=== PATIENT | female | born 1945 | race Caucasian/White ===

== ENCOUNTER 2016-08-18 13:41 | Day surgery (SDC) | payer MEDICARE, OTHER ==
--- NOTE | ~2016-08-18 | EGD ---
EGD REPORT [facility] [address] [address] NAME: LEN ORTIZ : [birth year] [place]US : [place] [facility] [place]#: [id number] AGE: 70 ADM/REG DATE : 08/18/16 MR#: [id number] REPORT SERV DATE: 08/18/16 DICTATED BY: SARA MASON DATE: 08/18/16 REPORT STATUS : Draft [facility] DATE: 08/18/16 [facility] Center Patient Name: Len Ortiz Date of : 1945 Attending MD: RAMON MASON MD Procedure Date No Time: 08/18/2016 Procedure: Upper GI endoscopy Indications: Dysphagia, Gastro-esophageal reflux disease Referring MD: JANNY WALLACE JR., JULIETTE MASON Medicines: See the Anesthesia note for documentation of the administered medications Complications: No immediate complications. Estimated blood loss: Minimal. Procedure: Pre-Anesthesia Assessment: - ASA Grade Assessment: II - A patient with mild systemic disease. - Prior to the procedure, a History and Physical was performed, and patient medications and allergies were reviewed. The patient's tolerance of previous anesthesia was also reviewed. The risks and benefits of the procedure and the sedation options and risks were discussed with the patient. All questions were answered, and informed consent was obtained. Prior Anticoagulants: The patient has taken no previous anticoagulant or antiplatelet agents. After reviewing the risks and benefits, the patient was deemed in satisfactory condition to undergo the procedure. After obtaining informed consent, the endoscope was passed under direct vision. Throughout the procedure, the patient's blood pressure, pulse, and oxygen saturations were monitored continuously. The GIF H190 [id number] was introduced through the mouth, and advanced to the second part of duodenum. The upper GI endoscopy was accomplished without difficulty. The patient tolerated the procedure well. Findings: The examined duodenum was normal. Diffuse mild inflammation characterized by erythema was found in the stomach. Biopsies were taken with a cold forceps for histology. The cardia and gastric fundus were normal on retroflexion. Diffuse mild erythema was found in the lower third of the esophagus. Biopsies were taken with a cold forceps for histology. The examined esophagus was normal. A guidewire was placed and the scope was withdrawn. Dilation was performed with a Savary dilator with no EGD REPORT [address] [place]. [address] NAME: LEN ORTIZ : [birth year] STATUS : REG [facility]#: [id number] AGE: 70 ADM/REG DATE : 08/18/16 MR#: [id number] REPORT SERV DATE: 08/18/16 DICTATED BY: SARA MASON DATE: 08/18/16 REPORT STATUS : Draft [facility]ANS[facility]ED [facility]: [facility] DATE: 08/18/16 resistance at 51 Fr. Impression: - Normal examined duodenum. - Gastritis. Biopsied. - Erythema in the lower third of the esophagus. Biopsied. - Normal esophagus. Dilated. Recommendation: - Patient has a contact number available for emergencies. The signs and symptoms of potential delayed complications were discussed with the patient. Return to normal activities tomorrow. Written discharge instructions were provided to the patient. - Regular diet. - Discharge patient to home. - Continue present medications. - Await pathology results. Procedure Code(s): --- Professional --- 68033, Esophagogastroduodenoscopy, flexible, transoral; with insertion of guide wire followed by passage of dilator(s) through esophagus over guide wire 09961, Esophagogastroduodenoscopy, flexible, transoral; with biopsy, single or multiple Diagnosis Code(s): --- Professional --- K29.70, Gastritis, unspecified, without bleeding K22.9, Disease of esophagus, unspecified R13.10, Dysphagia, unspecified K21.9, Gastro-esophageal reflux disease without esophagitis CPT copyright 2013 [employer]. All rights reserved. The codes documented in this report are preliminary and upon emergency medical services coordinator review may be revised to meet current compliance requirements. RAMON MASON MD 08/18/2016 4:10 PM This report has been signed electronically. Number of Addenda: 0 Note Initiated On: 08/18/2016 3:54 PM Scope Withdrawal Time 0 hours 0 minutes 0 seconds [id number] [id number]
--- NOTE | ~2016-08-18 | CN ---
Consultation Report [facility] [address] [place]. [address] NAME: LEN ORTIZ : [birth year] STATUS : DEP [facility]#: [id number] AGE: 70 ADM/REG DATE : 08/18/16 MR#: [id number] REPORT SERV DATE: 08/22/16 DICTATED BY: SARA ORTEGA DATE: 08/18/16 REPORT STATUS : Draft TRANSCRIBED BY: MELISSA DATE: 08/18/16 DATE OF CONSULTATION: 08/18/2016 Ms. Ortiz is a very pleasant, 70-year-old lady who underwent an uneventful EGD and a colonoscopy. Postprocedure in the recovery area, she started complaining of abdominal pain, which she has had initially was 8 on a scale of 1 to 10. The nurse called me and I went and examined, her abdomen was some distended, but there were good bowel sounds. There was no rebound tenderness or guarding. For a while, the patient was turned around in different positions. She walked the velásquez, went to the bathroom, and according to the RN, lot of air came out. Her pain was down to 5 on a scale of 1 to 10. However, she said it kept going up between 5 and 7. She also complained of upper abdominal epigastric bloating and discomfort. At this point, the nurse called me back again and I came back to see the patient, and we ordered a CT scan of the abdomen and pelvis. I have reviewed the CT abdomen and pelvis with Dr. Mazariegos and there is a lot of air in the colon. There is no evidence of free air or no evidence of any splenic damage. On examination, her vital signs are stable. Abdomen is somewhat distended, though not tense. Bowel sounds are present. There is some tenderness in the mid abdominal area without guarding, rigidity, or rebound. I tried to put a rectal tube to get some air out, but this was not successful as I believe most of the air is higher up. At this point, I have discussed with the patient and the , they think she is stable. We will be discharging her. She needs to do a lot of walking and the patient states she has had this issue in the past and when she walks, she feels a whole lot better. She will be putting some heating pad on the abdomen. They have also been informed that if the pain gets worse instead of getting better, then she needs to give us a call or come to the hospital emergency room. ALEJANDRINA/MELISSA Eduar Ortega M.D. / [phone] CC: Bella Hodge Jr., M.D.
--- NOTE | ~2016-08-18 | EGD ---
EGD REPORT [facility] [address] [address] NAME: LEN ORTIZ : 43 STATUS : REG [facility] [place] PAT#: [id number] AGE: 70 ADM/REG DATE : 08/18/16 MR#: [id number] REPORT SERV DATE: 08/18/16 DICTATED BY: SARA MASON DATE: 08/18/16 REPORT STATUS : Draft [facility] DATE: 08/18/16 Endoscopy Center Patient Name: Len Ortiz Date of : 1945 Attending MD: RAMON MASON MD Procedure Date No Time: 08/18/2016 Procedure: Colonoscopy Indications: Lower abdominal pain, Change in bowel habits, Constipation Referring MD: JANNY WALLACE JR., JULIETTE MASON Medicines: See the Anesthesia note for documentation of the administered medications Complications: No immediate complications. Estimated blood loss: None. Procedure: Pre-Anesthesia Assessment: - ASA Grade Assessment: II - A patient with mild systemic disease. - Prior to the procedure, a History and Physical was performed, and patient medications and allergies were reviewed. The patient's tolerance of previous anesthesia was also reviewed. The risks and benefits of the procedure and the sedation options and risks were discussed with the patient. All questions were answered, and informed consent was obtained. Prior Anticoagulants: The patient has taken no previous anticoagulant or antiplatelet agents. After reviewing the risks and benefits, the patient was deemed in satisfactory condition to undergo the procedure. After I obtained informed consent, the scope was passed under direct vision. Throughout the procedure, the patient's blood pressure, pulse, and oxygen saturations were monitored continuously. The PCF [id number] was introduced through the anus and advanced to the terminal ileum. The ileocecal valve, appendiceal orifice, terminal ileum and rectum were photographed. The entire colon was examined. The colonoscopy was performed without difficulty. The patient tolerated the procedure well. The quality of the bowel preparation was adequate. Findings: The perianal and digital rectal examinations were normal. The terminal ileum appeared normal. A sessile polyp was found in the sigmoid colon. The polyp was 3 mm in size. The polyp was removed with a piecemeal technique using a cold biopsy forceps. Resection and retrieval were complete. Multiple medium-mouthed diverticula were found in the sigmoid colon and EGD REPORT [address] [place]. [address] NAME: LEN ORTIZ : [birth year] STATUS : REG [facility]#: [id number] AGE: 70 ADM/REG DATE : 08/18/16 MR#: [id number] REPORT SERV DATE: 08/18/16 DICTATED BY: SARA MASON DATE: 08/18/16 REPORT STATUS : Draft TRANSCRIBED BY: [facility] DATE: 08/18/16 in the descending colon. Non-bleeding internal hemorrhoids were found during retroflexion and were Grade I (internal hemorrhoids that do not prolapse). No other significant abnormalities were identified in a careful examination of the remainder of the colon. Impression: - The examined portion of the ileum was normal. - One 3 mm polyp in the sigmoid colon. Resected and retrieved. - Diverticulosis in the sigmoid colon and in the descending colon. - Non-bleeding internal hemorrhoids. Recommendation: - Patient has a contact number available for emergencies. The signs and symptoms of potential delayed complications were discussed with the patient. Return to normal activities tomorrow. Written discharge instructions were provided to the patient. - High fiber diet indefinitely. - Discharge patient to home. - Continue present medications. - Await pathology results. - Repeat colonoscopy for surveillance based on pathology results. Procedure Code(s): --- Professional --- 13821, Colonoscopy, flexible, proximal to splenic flexure; with biopsy, single or multiple Diagnosis Code(s): --- Professional --- K64.0, First degree hemorrhoids K57.30, Diverticulosis of large intestine without perforation or abscess without bleeding D12.5, Benign neoplasm of sigmoid colon R10.30, Lower abdominal pain, unspecified R19.4, Change in bowel habit K59.00, Constipation, unspecified CPT copyright 2013 [employer]. All rights reserved. The codes documented in this report are preliminary and upon furnace reliner review may be revised to meet current compliance requirements. RAMON MASON MD 08/18/2016 4:29 PM EGD REPORT [facility] [address] [place] [address] NAME: LEN ORTIZ : [birth year] STATUS : REG [facility] [place] PAT#: [id number] AGE: 70 ADM/REG DATE : 08/18/16 MR#: [id number] REPORT SERV DATE: 08/18/16 DICTATED BY: SARA MASON DATE: 08/18/16 REPORT STATUS : Draft TRANSCRIBED BY: [facility] DATE: 08/18/16 This report has been signed electronically. Number of Addenda: 0 Note Initiated On: 08/18/2016 3:49 PM Scope Withdrawal Time 0 hours 10 minutes 17 seconds [id number] [place] [id number]
[~2016-08-18 13:41] MED LIST: AMIT25 PO; CALTRA600D PO; CLARINEX5 MG PO; CYANO1000T PO; CYMBALTA60 PO; ESTRACE0.5 MG PO; FISH OIL1200 MG PO; HARD NAILS OR; LEVOTHYROXIN88 MCG PO; LIPITOR10 PO; NEXIUM40 PO; PRAVAC PO; PREM45 PO; PROTONIX PO; PROZ10 PO; SPIRO50 PO; SYN125 PO; ZANTAC150 MG PO
== END 2016-08-18 23:59 | disposition home health service (06) ==
LOC: DMU 13:41
PROVIDERS: Internal Medicine Gastroenterology
PROC: 0DBN8ZX Excision of Sigmoid Colon, Via Natural or Artificial Opening Endoscopic, Diagnostic (ICD-10-PCS; 2016-08-18)
PROC: 0DB38ZX Excision of Lower Esophagus, Via Natural or Artificial Opening Endoscopic, Diagnostic (ICD-10-PCS; principal; 2016-08-18 15:30)
PROC: 0DB68ZX Excision of Stomach, Via Natural or Artificial Opening Endoscopic, Diagnostic (ICD-10-PCS; 2016-08-18 15:30)
PROC: 0D758ZZ Dilation of Esophagus, Via Natural or Artificial Opening Endoscopic (ICD-10-PCS; 2016-08-18 15:30)
DX: D12.5 Benign neoplasm of sigmoid colon (principal); K29.50 Unspecified chronic gastritis without bleeding; N18.3 Chronic kidney disease, stage 3 (moderate); E03.9 Hypothyroidism, unspecified; K22.9 Disease of esophagus, unspecified; K21.9 Gastro-esophageal reflux disease without esophagitis; K64.0 First degree hemorrhoids; K57.30 Diverticulosis of large intestine without perforation or abscess without bleeding; F41.9 Anxiety disorder, unspecified; F32.9 Major depressive disorder, single episode, unspecified; E78.00 Pure hypercholesterolemia, unspecified; M19.90 Unspecified osteoarthritis, unspecified site; Z90.49 Acquired absence of other specified parts of digestive tract; Z90.710 Acquired absence of both cervix and uterus; Z98.41 Cataract extraction status, right eye; Z88.1 Allergy status to other antibiotic agents; Z98.42 Cataract extraction status, left eye; Z98.890 Other specified postprocedural states
CPT/HCPCS: 74150; 74176; 88305; A9270-GY